=== PATIENT | male | born 1985 | race Caucasian/White ===

== ENCOUNTER 2018-04-15 10:33 | Emergency (ER) | payer SELFPAY ==
[2018-04-15] MEDS: LIDOCAINE 1% (MDV) 20 ML INJ SC (11:06)
[2018-04-15] MEDS: ACETAMINOPHEN 325 MG TAB PO (11:19)
== END 2018-04-15 11:59 | disposition home or self-care (01) ==
LOC: FTE 10:33
DX: S11.91XA Laceration without foreign body of unspecified part of neck, initial encounter (principal); Y28.8XXA Contact with other sharp object, undetermined intent, initial encounter; Y92.9 Unspecified place or not applicable
CPT/HCPCS: 12002; 99282-25